=== PATIENT | male | born 1975 | race Caucasian/White ===

== ENCOUNTER 2021-07-08 22:23 | Emergency (ER) | payer MEDICAID ==
[~2021-07-08] VITALS: Ht 167.6 cm; Wt 80.7 kg
[2021-07-08 23:20] VITALS: BP_SYST 110
[2021-07-08] MEDS ORDERED: SULF5DRO RIGHT EYE (23:26)
[2021-07-08 23:37] VITALS: BP_SYST 110
== END 2021-07-08 23:37 | disposition home or self-care (01) ==
LOC: SED 22:23
DX: S05.11XA Contusion of eyeball and orbital tissues, right eye, initial encounter (principal); S05.01XA Injury of conjunctiva and corneal abrasion without foreign body, right eye, initial encounter; Z79.899 Other long term (current) drug therapy; X58.XXXA Exposure to other specified factors, initial encounter; Y93.89 Activity, other specified; Y92.89 Other specified places as the place of occurrence of the external cause; Y99.8 Other external cause status
CPT/HCPCS: 99283

== ENCOUNTER 2021-10-20 16:06 | Emergency (ER) | payer MEDICAID, SELFPAY ==
[~2021-10-20] VITALS: Ht 167.6 cm; Wt 79.4 kg
[2021-10-20 16:06] VITALS: BP_SYST 134
[~2021-10-20 16:06] MED LIST: SULF5DRO RIGHT EYE
--- NOTE | 2021-10-20 16:08 | NUR ---
BROUGHT BACK TO TRIAGE TENT AND TRIAGED, AWAITING ER BED AVAILABILITY
[2021-10-20] MEDS ORDERED: IBUP-2018 PO (16:51)
[2021-10-20] MEDS ORDERED: ACET-2634 PO (16:51)
--- NOTE | 2021-10-20 17:10 | NUR ---
DR SCHWARTZ OUT TO TRIAGE TENT TO EVALUATE.
--- NOTE | 2021-10-20 17:40 | NUR ---
SWABBED FOR PCR COVID AND EXPLAINED TO PT TO ISOLATE.
--- NOTE | 2021-10-20 17:55 | NUR ---
Patient given written and verbal discharge instructions and verbalizes understanding. ER MD discussed with patient the results and treatment provided. Patient in stable condition. ID arm band removed. Rx of ACETAMINOPHEN, MOTRIN given. Patient educated on pain management and to follow up with PMD. Pain Scale 0/10. Opportunity for questions provided and answered. Medication side effect fact sheet provided.
== END 2021-10-20 17:50 | disposition home or self-care (01) ==
LOC: SED 16:06
DX: M79.18 Myalgia, other site (principal); R05.9 Cough, unspecified; Z79.899 Other long term (current) drug therapy; Z20.822 Contact with and (suspected) exposure to COVID-19
CPT/HCPCS: 99283; U0003; C9803

== ENCOUNTER → 2022-03-05 | Emergency (ER) | payer MEDICAID ==
[~2022-03-05] VITALS: Ht 167.6 cm; Wt 86.2 kg
[~2022-03-05] MED LIST changes: +ACET-2634 PO; +ASPIRIN 81 MG TAB.CHEW PO ONE; +BUPIVACAINE LIPOSOME/PF 266 MG/20 ML VIAL INFIL ONE; +HYDR-3917 PO; +IBUP-2018 PO; +IOHEXOL 350 mgI/mL, 150 ML INFUS..BTL IV ONE; +MORPHINE 4 MG INJ. 4 MG/ML VIAL IVP ONE; +NACL 0.9% 1,000 ML IV ONE; +ONDANSETRON HCL 4 MG/2 ML VIAL IVP ONE; +SOM350 PO; +TRAM50TA PO; +fentaNYL CITRATE/PF 100 MCG/2 ML AMP IVP ONE
[2022-03-05 17:46] VITALS: BP_SYST 129
[2022-03-05 19:15] LABS: BASOPHILS # (AUTO) 0.1 K/uL (0.0-0.2); BASOPHILS % (AUTO) 0.8 % (0.0-2.0); EOSINOPHILS # (AUTO) 0.1 K/uL (0.0-0.4); EOSINOPHILS % (AUTO) 1.8 % (0.0-4.0); HEMOGLOBIN 14.5 g/dL (14.0-18.0); LYMPHOCYTES # (AUTO) 2.1 K/uL (1.0-5.5); LYMPHOCYTES % (AUTO) 26.2 % (20.5-51.5); MEAN CORPUSCULAR HEMOGLOBIN 27 pg (27-31); MEAN CORPUSCULAR HGB CONC 34 % (32-36); MEAN CORPUSCULAR VOLUME 80 fL (79.0-98.0); MONOCYTES # (AUTO) 0.7 K/uL (0.0-1.0); MONOCYTES % (AUTO) 8.6 % (1.7-9.3); NEUTROPHILS # (AUTO) 5.1 K/uL (1.8-7.7); NEUTROPHILS % (AUTO) 62.6 % (40.0-70.0); PLATELET COUNT (AUTO) 240 K/uL (130-430); RED BLOOD CELL COUNT(AUTO) 5.36 MIL/uL (4.2-6.2); RED CELL DISTRIBUTION WIDTH 14.4 % (9.0-15.0); WHITE BLOOD COUNT (AUTO) 8.1 K/uL (4.8-10.8)
[2022-03-05 19:28] LABS: ANION GAP 9 (5-15); CALCIUM 8.5 mg/dL (8.4-11.0); CHLORIDE 104 mmol/L (98-107); CREATININE 0.88 mg/dL (0.55-1.30); GLUCOSE 88 mg/dL (70-99); POTASSIUM 3.4 mmol/L (3.5-5.1); SODIUM SERUM 142 mmol/L (136-145); UREA NITROGEN, BLOOD 15 mg/dL (8-21)
[2022-03-05 19:29] LABS: GFR AFRICAN AMERICAN 121 mL/min (>90)
[2022-03-05 19:36] LABS: ALANINE AMINOTRANSFERASE 63 U/L (12-78); ALBUMIN 3.5 g/dL (3.4-4.8); ASPARTATE AMINOTRANSFERASE 24 U/L (10-37); LIPASE 103 U/L (73-393); TOTAL BILIRUBIN 0.2 mg/dL (0.0-1.0)
[2022-03-05 21:50] VITALS: BP_SYST 116
[2022-03-05 21:51] LABS: BILIRUBIN,URINE NEGATIVE (NEGATIVE); BLOOD, URINE NEGATIVE (NEGATIVE); CLARITY/URINE CLEAR (CLEAR); COLOR,URINE YELLOW (YELLOW); GLUCOSE,URINE NEGATIVE (NEGATIVE); KETONES,URINE NEGATIVE (NEGATIVE); LEUKOCYTE ESTERASE ,URINE NEGATIVE (NEGATIVE); NITRITE, URINE NEGATIVE (NEGATIVE); PROTEIN URINE NEGATIVE (NEGATIVE)
== END | disposition home or self-care (01) ==
LOC: SED 17:18
DX: R10.12 Left upper quadrant pain (principal); Z79.899 Other long term (current) drug therapy
CPT/HCPCS: 36415; 71045; 71275; 72191; 74175; 76376; 80053; 81003; 83690; 83880; 84484; 85025; 93005; 96361; 96374; 96375; 99285; J2270; J2405; J3010; J7030; Q9967

== ENCOUNTER 2024-01-24 11:41 | Emergency (ER) | payer OTHER ==
[~2024-01-24] VITALS: Ht 167.6 cm; Wt 86.2 kg
[~2024-01-24 11:41] MED LIST changes: -ASPIRIN 81 MG TAB.CHEW PO ONE; -BUPIVACAINE LIPOSOME/PF 266 MG/20 ML VIAL INFIL ONE; -HYDR-3917 PO; -IOHEXOL 350 mgI/mL, 150 ML INFUS..BTL IV ONE; -MORPHINE 4 MG INJ. 4 MG/ML VIAL IVP ONE; -NACL 0.9% 1,000 ML IV ONE; -ONDANSETRON HCL 4 MG/2 ML VIAL IVP ONE; -fentaNYL CITRATE/PF 100 MCG/2 ML AMP IVP ONE
[2024-01-24 11:45] VITALS: BP_SYST 127; PULSE 95; RESP 18; TEMP 97.3; O2SAT 97
[2024-01-24] MEDS ORDERED: MELO-89 PO (13:12)
[2024-01-24] MEDS ORDERED: CYCL10TA24 PO (13:12)
[2024-01-24 14:08] VITALS: BP_SYST 127; PULSE 95; RESP 18; TEMP 97.3; O2SAT 97
== END 2024-01-24 14:03 | disposition home or self-care (01) ==
LOC: SED 11:41
DX: S20.212A Contusion of left front wall of thorax, initial encounter (principal); S80.812A Abrasion, left lower leg, initial encounter; W07.XXXA Fall from chair, initial encounter; Y93.89 Activity, other specified; Y92.096 Garden or yard of other non-institutional residence as the place of occurrence of the external cause; Y99.8 Other external cause status
CPT/HCPCS: 71100; 73590; 99284